=== PATIENT | female | born 1990 | race Two or more races ===

== ENCOUNTER 2025-02-27 04:33 | Emergency (ER) | payer MEDICAID ==
[~2025-02-27] VITALS: Ht 170.2 cm; Wt 79.1 kg
[2025-02-27 05:20] LABS: Urine Bacteria None Seen /hpf (None Seen)
[2025-02-27 06:27] LABS: Urine Blood 3+ /uL (Negative); Urine Budding Yeast MODERATE /hpf (None Seen); Urine Clarity Turbid (Clear); Urine Color Light-Brown (Yellow); Urine Mucus FEW (None Seen); Urine Protein, UAD 1+ (Negative); Urine Specific Gravity 1.017 (1.001-1.035); Urine Squamous Epithelial Cell FEW /hpf (<5); Urine Urobilinogen Normal (Negative); Urine WBC 322 /HPF (0-5); Urine pH 5.5 (5.0-9.0)
[2025-02-27] MEDS ORDERED: BACDST PO (06:45)
--- NOTE | 2025-02-27 06:47 | ED.PDOC ---
General HPI Comments This is a 34-year-old female that comes in with dysuria for approximately 2 days some lower abdominal pain frequency urgency and hematuria. She also has some low back pain. No nausea no vomiting able to tolerate liquids. States he has not had a urinary for awhile, she is sexually active.. Chief Complaint: Urinary Time Seen by MD: 06:39 Reviewed notes: Nurses Notes, Medications, Allergies Allergies: Coded Allergies: NO KNOWN ALLERGIES (Unverified , 02/27/25) Home Meds Active Scripts Sulfamethoxazole W/Trimethopri (Bactrim Ds Tablet) 1 Tab Tb, 1 TAB PO BID for 7 Days, #14 TAB Prov:DORY MONSALVE [facility] 02/27/25 Information Source: Patient Mode of Arrival: Ambulatory Past Medical History Surgical History (Other): Cosmetic surgery Social History Smoker: Non-Smoker Alcohol: Denies ETOH Use Drugs: Denies Drug Use Lives In: Home Gastrointestinal: reports: abdominal pain Genitourinary: reports: burning, dysuria, flank pain, frequency, hematuria, pain, urgency Physical Exam General Appearance: No Apparent Distress HEENT: Normal ENT Inspection, Pharynx Normal, TMs Normal Neck: Non-Tender, Normal Inspection, Supple Respiratory: Lungs Clear, No Accessory Muscle Use, No Respiratory Distress, Normal Breath Sounds Cardiovascular: Regular Rate/Rhythm Breast Exam: Deferred Gastrointestinal: Normal Bowel Sounds, Suprapubic, Tenderness Genitalia: Deferred Pelvic: Deferred Rectal: Deferred Extremities: Normal inspection, Normal range of motion Neurologic: Alert, No Motor Deficits, Normal Affect, Normal Mood Cerebellar Function: NOT DONE Reflexes: NOT DONE Skin: Dry, Normal Color, Warm Lymphatic: NOT DONE Was a procedure done? Was a procedure done?: No Differential Diagnosis Kidney stone (Female): Pyelonephritis, Urolithiasis X-Ray, Labs, Meds, VS Vital Signs Date Time Temp Pulse Resp B/P (MAP) Pulse Ox O2 Delivery O2 Flow Rate FiO2 02/27/25 05:10 98.8 72 18 111/68 (82) 98 98.8 Lab Test 02/27/25 05:19 Range/Units Urine Color Light-brown Yellow Urine Clarity Turbid H Clear Urine pH 5.5 5.0-9.0 Urine Specific [place] 1.017 1.001-1.035 Urine Protein 1+ H Negative Urine Ketones Negative Negative Urine Blood 3+ H Negative /uL Urine Nitrite Negative Negative Urine Bilirubin Negative Negative Urine Urobilinogen Normal Negative mg/dL Urine Leukocyte Esterase 3+ Negative /uL Urine RBC 1405 0 - 4 /hpf Urine Microscopic WBC 322 H 0-5 /HPF Urine Squamous Epithelial Cells Few <5 /hpf Urine Bacteria None seen None Seen /hpf Urine Mucus Few None Seen Urine Yeast (Budding) Moderate None Seen /hpf Urine Glucose Normal Normal mg/dL X-Ray, Labs, Meds, VS Comment Patient seen and examined by me. She does have a urinary tract infection noted on her labs. With symptoms. I will start her on some antibiotics. Instructed to drink lots of liquids make sure she uses the bathroom when she feels need in make sure she voids before and after any sexual relations.. Time of 1ST Reevaluation: 06:43 Reevaluation 1ST: Unchanged Patient Education/Counseling: Diagnosis, Treatment, Prognosis, Need For Follow Up Family Education/Counseling: No Family Present Departure 1 Departure Time of Disposition: 06:44 Impression: Primary Impression: UTI (urinary tract infection) Disposition: 01 HOME / SELF CARE / HOMELESS Condition: Good Additional Instructions: Finish all the antibiotics as directed even though you feel better if you do not take all the meds he infection will come back Drink a lot of liquids Ensure you use the bathroom when you feel the need Make sure you use the bathroom before and after any sexual relations Follow up with your regular doctor in the next 2 3 days e-Prescriptions Sulfamethoxazole W/Trimethopri (Bactrim Ds Tablet) 1 Tab Tb 1 TAB PO BID for 7 Days, #14 TAB Prov: DORY MONSALVE 02/27/25 Discharged With: Self Critical Care Note Critical Care Time?: No Stability Stability form required: Yes DORY MONSALVE Feb 27, 2025 06:47
[2025-02-27 06:54] VITALS: BP 106/78; PULSE 72; RESP 19; TEMP 98.1; O2SAT 100
== END 2025-02-27 07:00 | disposition home or self-care (01) ==
LOC: ER 04:33
DX: N39.0 Urinary tract infection, site not specified (principal); Z79.899 Other long term (current) drug therapy
CPT/HCPCS: 81001

== ENCOUNTER 2025-05-25 15:45 | Emergency (ER) | payer MEDICAID ==
[~2025-05-25 15:45] MED LIST: BACDST PO
--- NOTE | 2025-05-25 16:33 | ED.PDOC ---
History of Present Illness HPI Comments 34-year-old female who presents with a chief complaint of UTI symptoms x2 days. Patient states she is having bloating, nausea, urinary burning frequency, symptoms that resemble her typical UTI. Patient states that this is the 3rd UTI that she has had this year and has been on 2 previous antibiotic regimens. Time Seen by MD: 16:08 Reviewed Notes: Nurses Notes, Medications, Allergies Allergies: Coded Allergies: NO KNOWN ALLERGIES (Unverified , 02/27/25) Home Meds Active Scripts Ibuprofen Micronized (Ibuprofen) 600 Mg Tab, 600 MG PO Q6HP PRN, #30 TAB Prn fever or pain. Take with food. Prov:HEAVEN MCCOY MD 05/25/25 Phenazopyridine HCl (Phenazopyridine Hydrochol) 200 Mg Tab, 200 MG PO TID PRN, #9 TAB Prn urinary pain. Prov:HEAVEN MCCOY MD 05/25/25 Cephalexin Monohydrate (Cephalexin) 500 Mg Cap, 1 CAP PO QID for 10 Days, #40 CAP Prov:HEAVEN MCCOY MD 05/25/25 Sulfamethoxazole W/Trimethopri (Bactrim Ds Tablet) 1 Tab Tb, 1 TAB PO BID for 7 Days, #14 TAB Prov:DORY MONSALVE [facility] 02/27/25 Information Source: Patient Mode of Arrival: Ambulatory Severity: Moderate Timing: Days Duration: Since onset Prehospital treatment: None Past Medical History PAST MEDICAL HISTORY: Denies Surgical History: Denies all surgeries TRAFFIC CONTROL SPECIALIST History: No Pertinent TRAFFIC CONTROL SPECIALIST History Family History Family History: Reviewed,noncontributory to illness Social History Smoker: Non-Smoker Alcohol: Denies ETOH Use Drugs: Denies Drug Use Lives In: Home Constitutional: denies: chills, diaphoresis, fatigue, fever, malaise, sweats, weakness, others EENTM: denies: blurred vision, double vision, ear bleeding, ear discharge, ear drainage, ear pain, ear ringing, eye pain, eye redness, hearing loss, mouth pain, mouth swelling, nasal discharge, nose bleeding, nose congestion, nose pain, photophobia, tearing, throat pain, throat swelling, voice changes, others Respiratory: denies: cough, hemoptysis, orthopnea, SOB at rest, shortness of breath, SOB with excertion, stridor, wheezing, others Cardiovascular: denies: chest pain, dizzy spells, diaphoresis, Dyspnea on exertion, edema, irregular heart beat, left arm pain, lightheadedness, pa lpitations, PND, syncope, others Gastrointestinal: denies: abdomen distended, abdominal pain, blood streaked bowels, constipated, diarrhea, dysphagia, difficulty swallowing, hematemesis, melena, nausea, poor appetite, poor fluid intake, rectal bleeding, rectal pain, vomiting, others Genitourinary: denies: abnormal vagina bleeding, burning, dyspareunia, dysuria, flank pain, frequency, hematuria, incontinence, pain, , vagina discharge, urgency, others Neurological: denies: dizziness, fainting, headache, left sided numbness, left sided weakness, numbness, paresthesia, pre-existing deficit, right sided numbness, right sided weakness, seizure, speech problems, tingling, tremors, weakness, others Musculoskeletal: denies: back pain, gout, joint pain, joint swelling, muscle pain, muscle stiffness, neck pain, others Integumetry: denies: bruises, change in color, change in hair/nails, dryness, laceration, lesions, lumps, rash, wounds, others Allergic/Immunocompromised: denies: Difficulty Healing, Frequent Infections, Hives, Itching, others Hematologic/Lymphatic: denies: anemia, blood clots, easy bleeding, easy bruising, swollen glands, others Endocrine: denies: excessive hunger, excessive sweating, excessive thirst, excessive urination, flushing, intolerance to cold, intolerance to heat, unexplained weight gain, unexplained weight loss, others Psychiatric: denies: anxiety, bipolar disorder, depression, hopeless, panic disorder, schizophrenia, sleepless, suicidal, others All Other Systems: Reviewed and Negative ( PER HPI) Physical Exam General Appearance: No Apparent Distress HEENT: Other (Pupils and face symmetric. Moist mucous membranes.) Neck: Full Range of Motion, Normal Inspection Respiratory: Lungs Clear, No Accessory Muscle Use, No Respiratory Distress, Normal Breath Sounds Cardiovascular: No Edema, No JVD, Regular Rate/Rhythm Breast Exam: Deferred Gastrointestinal: Soft, Suprapubic, Tenderness Genitalia: Deferred Pelvic: Deferred Rectal: Deferred Extremities: Normal inspection, Normal range of motion, Non-tender, No pedal edema Neurologic: Alert (Oriented x4), Normal Affect, Normal Mood Cerebellar Function: NOT DONE Reflexes: NOT DONE Skin: Dry, Normal Color, Warm Lymphatic: NOT DONE Was a procedure done? Was a procedure done?: No Differential Dx Considerations may include: Cystitis, , urethritis, pyelonephritis, among others X-Ray, Labs, Meds, VS Lab Test 05/25/25 18:02 Range/Units Urine Color Colorless Yellow Urine Clarity Turbid H Clear Urine pH 5.0 5.0-9.0 Urine Specific [place] 1.010 1.001-1.035 Urine Protein Negative Negative Urine Ketones Negative Negative Urine Blood Trace H Negative /uL Urine Nitrite Negative Negative Urine Bilirubin Negative Negative Urine Urobilinogen Normal Negative mg/dL Urine Leukocyte Esterase 3+ Negative /uL Urine RBC 5 0 - 4 /hpf Urine Microscopic WBC 27 H 0-5 /HPF Urine Squamous Epithelial Cells Few <5 /hpf Urine Bacteria Few H None Seen /hpf Urine Glucose Normal Normal mg/dL Urine Test Negative Negative X-Ray, Labs, Meds, VS Comment 34-year-old female with history of prior UTIs brought in by family complaining of urinary burning, frequency, suprapubic abdominal cramping and bloating consistent with prior UTIs. Vitals unremarkable Exam remarkable for mild suprapubic tenderness to palpation UA abnormal consistent with UTI, urine negative No acute treatment indicated in the ED On re-evaluation, patient appears comfortable with unremarkable vitals. Patient appears stable for discharge with close outpatient follow-up with her primary physician. Rx Keflex, Pyridium ibuprofen Time of 1ST Reevaluation: 16:38 Reevaluation 1ST: Unchanged Patient Education/Counseling: Diagnosis, Treatment, Need For Follow Up Family Education/Counseling: No Family Present SEPSIS Sepsis Screen Physician Orders Electrocardigram (05/25/25 16:52) Departure 1 Departure Time of Disposition: 17:02 Impression: Primary Impression: UTI (urinary tract infection) Qualified Codes: N30.00 - Acute cystitis without hematuria Disposition: 01 HOME / SELF CARE / HOMELESS Condition: Stable Additional Instructions: Urine test was abnormal consistent with a urinary tract infection. I have prescribed medication for your symptoms as well as antibiotics. Follow-up with your primary doctor in 1-2 days. e-Prescriptions Ibuprofen Micronized (Ibuprofen) 600 Mg Tab 600 MG PO Q6HP PRN, #30 TAB Prn fever or pain. Take with food. Prov: HEAVEN MCCOY MD 05/25/25 Phenazopyridine HCl (Phenazopyridine Hydrochol) 200 Mg Tab 200 MG PO TID PRN, #9 TAB Prn urinary pain. Prov: HEAVEN MCCOY MD 05/25/25 Cephalexin Monohydrate (Cephalexin) 500 Mg Cap 1 CAP PO QID for 10 Days, #40 CAP Prov: HEAVEN MCCOY MD 05/25/25 Discharged With: Relative Critical Care Note Critical Care Time?: No Stability Stability form required: No Heart Score Heart Score: Heart Score Response (Comments) Value History N/A 0 EKG N/A 0 Age N/A 0 Risk Factors N/A 0 Troponin N/A 0 Total 0 I personally scribed for LEXY BENEDICT MD ([email or web address]) on 05/25/25 at 16:33. Electronically submitted by Marko Mckenna ([email or web address]). LEXY BENEDICT MD May 25, 2025 16:33 HEAVEN MCCOY MD May 25, 2025 17:04
[2025-05-25] MEDS ORDERED: PHEN-1045 PO (17:03)
[2025-05-25] MEDS ORDERED: CEPH500C PO (17:03)
[2025-05-25] MEDS ORDERED: IBUP1TAB5 PO (17:03)
[2025-05-25 18:23] LABS: Urine Protein, UAD Negative (Negative)
== END 2025-05-25 20:33 | disposition left against medical advice (07) ==
LOC: ER 15:52
DX: N39.0 Urinary tract infection, site not specified (principal); Z87.440 Personal history of urinary (tract) infections; Z79.899 Other long term (current) drug therapy
CPT/HCPCS: 81001; 81025

== ENCOUNTER 2025-06-12 06:18 | Emergency (ER) | payer MEDICAID ==
[~2025-06-12] VITALS: Ht 170.2 cm; Wt 77.6 kg
[~2025-06-12 06:18] MED LIST changes: +CEPH500C PO; +IBUP1TAB5 PO; +PHEN-1045 PO
--- NOTE | 2025-06-12 06:29 | ED.PDOC ---
HPI Comments 34 y/o F, with PMHx of anxiety presents to the ED for CC of chest pain. Patient states, she has been experiencing intermittent substernal chest pain with associated left arm pain x3 months. Patient complains of current 7/10 pain. Patient denies shortness of breath, headache, nausea, vomiting, or palpitations. No other associated symptoms, modifiers, recent injuries or sick contacts present at this time. Chief Complaint: Chest Pain Time Seen by MD: 06:30 Reviewed Notes: Nurses Notes, Medications, Allergies Allergies: Coded Allergies: NO KNOWN ALLERGIES (Unverified , 02/27/25) Home Meds Active Scripts Ibuprofen Micronized (Ibuprofen) 600 Mg Tab, 600 MG PO Q6HP PRN, #30 TAB Prn fever or pain. Take with food. Prov:HEAVEN MCCOY MD 05/25/25 Phenazopyridine HCl (Phenazopyridine Hydrochol) 200 Mg Tab, 200 MG PO TID PRN, #9 TAB Prn urinary pain. Prov:HEAVEN MCCOY MD 05/25/25 Cephalexin Monohydrate (Cephalexin) 500 Mg Cap, 1 CAP PO QID for 10 Days, #40 CAP Prov:HEAVEN MCCOY MD 05/25/25 Sulfamethoxazole W/Trimethopri (Bactrim Ds Tablet) 1 Tab Tb, 1 TAB PO BID for 7 Days, #14 TAB Prov:DORY MONSALVE 02/27/25 Information Source: Patient Mode of Arrival: Ambulatory Severity: Moderate Timing: Months Duration: Intermittent Prehospital treatment: None Location: Substernal Radiation: Arm (L) Onset: At Rest Cardiac Risk Factors: None PE Risk Factors: None History of: None Modifying Factors: Nothing Associated Signs and Symptoms: None Past Medical History PAST MEDICAL HISTORY: Anxiety Surgical History: Denies all surgeries CHIMNEY SUPERVISOR BRICK History: No Pertinent CHIMNEY SUPERVISOR BRICK History Family History Family History: Reviewed,noncontributory to illness Social History Smoker: Non-Smoker Alcohol: Denies ETOH Use Drugs: Denies Drug Use Lives In: Home Constitutional: denies: chills, diaphoresis, fatigue, fever, malaise, sweats, weakness, others EENTM: denies: blurred vision, double vision, ear bleeding, ear discharge, ear drainage, ear pain, ear ringing, eye pain, eye redness, hearing loss, mouth pain, mouth swelling, nasal discharge, nose bleeding, nose congestion, nose pain, photophobia, tearing, throat pain, throat swelling, voice changes, others Respiratory: denies: cough, hemoptysis, orthopnea, SOB at rest, shortness of breath, SOB with excertion, stridor, wheezing, others Cardiovascular: reports: chest pain, left arm pain; denies: dizzy spells, diaphoresis, Dyspnea on exertion, edema, irregular heart beat, lightheadedness, palpitations, PND, syncope, others Gastrointestinal: denies: abdomen distended, abdominal pain, blood streaked bowels, constipated, diarrhea, dysphagia, difficulty swallowing, hematemesis, melena, nausea, poor appetite, poor fluid intake, rectal bleeding, rectal pain, vomiting, others Genitourinary: denies: abnormal vagina bleeding, burning, dyspareunia, dysuria, flank pain, frequency, hematuria, incontinence, pain, , vagina discharge, urgency, others Neurological: denies: dizziness, fainting, headache, left sided numbness, left sided weakness, numbness, paresthesia, pre-existing deficit, right sided numbness, right sided weakness, seizure, speech problems, tingling, tremors, weakness, others Musculoskeletal: denies: back pain, gout, joint pain, joint swelling, muscle pain, muscle stiffness, neck pain, others Integumetry: denies: bruises, change in color, change in hair/nails, dryness, laceration, lesions, lumps, rash, wounds, others Allergic/Immunocompromised: denies: Difficulty Healing, Frequent Infections, Hives, Itching, others Hematologic/Lymphatic: denies: anemia, blood clots, easy bleeding, easy bruising, swollen glands, others Endocrine: denies: excessive hunger, excessive sweating, excessive thirst, excessive urination, flushing, intolerance to cold, intolerance to heat, unexplained weight gain, unexplained weight loss, others Psychiatric: reports: anxiety; denies: bipolar disorder, depression, hopeless, panic disorder, schizophrenia, sleepless, suicidal, others All Other Systems: Reviewed and Negative Physical Exam General Appearance: Moderate Distress HEENT: Normal ENT Inspection, Pharynx Normal, TMs Normal Neck: Full Range of Motion, Non-Tender, Normal, Normal Inspection Respiratory: Chest Non-Tender, Lungs Clear, No Accessory Muscle Use, No Respiratory Distress, Normal Breath Sounds Cardiovascular: No Edema, No JVD, No Murmur, No Gallop, Normal Peripheral Pulses, Regular Rate/Rhythm Breast Exam: Deferred Gastrointestinal: No Organomegaly, Non Tender, No Pulsatile Mass, Normal Bowel Sounds, Soft Genitalia: Deferred Pelvic: Deferred Rectal: Deferred Extremities: No calf tenderness, Normal capillary refill, Normal inspection, Normal range of motion, Non-tender, No pedal edema Musculoskeletal : Apperance: Normal Neurologic: Alert, operator vacuum II-XII nml as Tested, No Motor Deficits, Normal Affect, Normal Mood, No Sensory Deficits Cerebellar Function: Normal Reflexes: Normal Skin: Dry, Normal Color, Warm Peripheral Pulses: 3+ Radial (R), 3+ Radial (L) Lymphatic: No Adenopathy EKG EKG : Pulse Rate (adult): 85 [place]: Normal Cardiac Rhythm: NSR Block: None Hypertrophy: None ST: Normal Was a procedure done? Was a procedure done?: No CP Differential Dx Differential Diagnosis: A-fib, A-Flutter, Angina, Anxiety / Panic Attack, Atrial Dysrhythmia, Electrolyte Disorder Differential Diagnosis: Angina, Chest Wall Pain, Costochondritis X-Ray, Labs, Meds, VS Vital Signs Date Time Temp Pulse Resp B/P (MAP) Pulse Ox O2 Delivery O2 Flow Rate FiO2 06/12/25 06:42 85 06/12/25 06:23 85 06/12/25 06:20 98.3 71 20 115/79 (91) 100 98.3 Lab Test 06/12/25 06:40 Range/Units White Blood Count Pending Red Blood Count Pending Hemoglobin Pending Hematocrit Pending Mean Corpuscular Volume Pending Mean Corpuscular Hemoglobin Pending Mean Corpuscular Hemoglobin Concent Pending Red Cell Distribution Width Pending Platelet Count Pending Mean Platelet Volume Pending Neutrophils (%) (Auto) Pending Lymphocytes (%) (Auto) Pending Monocytes (%) (Auto) Pending Basophils (%) (Auto) Pending Neutrophils # (Auto) Pending Lymphocytes # (Auto) Pending Monocytes # (Auto) Pending Sodium Level Pending Potassium Level Pending Chloride Level Pending Carbon Dioxide Level Pending Anion Gap Pending Blood Urea Nitrogen Pending Creatinine Pending Glomerular Filtration Rate Calc Pending BUN/Creatinine Ratio Pending Serum Glucose Pending Calcium Level Pending Troponin I High Sensitivity Pending Patient alert. Anxious. Complaining of chest pain. Vitals stable. EKG reviewed does not show any acute changes. Was given Ativan. No leg swelling. No shortness a breath. Explained to the patient that she is not having a heart attack. Was told to follow up with her primary care physician. Was told to come back if there is any problem. Time of 1ST Reevaluation: 07:00 Reevaluation 1ST: Unchanged Patient Education/Counseling: Diagnosis, Treatment Family Education/Counseling: No Family Present SEPSIS Sepsis Screen Physician Orders Complete Blood Count (06/12/25 06:31) Urinalysis (06/12/25 06:31) Troponin-I Hs (06/12/25 06:31) Troponin-I Hs (06/12/25 07:31) Troponin-I Hs (06/12/25 09:31) Basic Metabolic Panel (06/12/25 06:31) Electrocardigram (06/12/25 06:42) Electrocardigram (06/12/25 07:42) Electrocardigram (06/12/25 09:42) Vital Signs Date Time Temp Pulse Resp B/P (MAP) Pulse Ox O2 Delivery O2 Flow Rate FiO2 06/12/25 06:42 85 06/12/25 06:23 85 06/12/25 06:20 98.3 71 20 115/79 (91) 100 98.3 Laboratory Tests Test 06/12/25 06:40 White Blood Count Pending Departure 1 Departure Time of Disposition: 07:00 Impression: Primary Impression: Musculoskeletal chest pain Additional Impression: Anxiety Disposition: 01 HOME / SELF CARE / HOMELESS Condition: Good Discharged With: Self Critical Care Note Critical Care Time?: No Stability Stability form required: No Heart Score Heart Score: Heart Score Response (Comments) Value History Slightly Suspicious 0 EKG Normal 0 Age <45 0 Risk Factors No known risk factors 0 Troponin Normal limit 0 Total 0 I personally scribed for VARUN SNYDER MD ([email or web address]) on 06/12/25 at 06:29. Electronically submitted by Guillermina Paredes ([email or web address]). I personally scribed for VARUN SNYDER MD ([email or web address]) on 06/12/25 at 06:40. Electronically submitted by Guillermina Paredes ([email or web address]). I personally scribed for VARUN SNYDER MD ([email or web address]) on 06/12/25 at 06:42. Electronically submitted by Guillermina Paredes ([email or web address]). I personally scribed for VARUN SNYDER MD ([email or web address]) on 06/12/25 at 06:42. Electronically submitted by Guillermina Paredes ([email or web address]). VARUN SNYDER MD Jun 12, 2025 06:29
[2025-06-12 07:08] LABS: Chloride 106 mmol/L (98-107); Sodium 139 mmol/L (136-145)
[2025-06-12 07:09] LABS: Anion Gap 10 (5-15); Carbon Dioxide 23 mmol/L (20-31)
[2025-06-12 07:10] LABS: Calcium 9.8 mg/dL (8.7-10.4)
[2025-06-12 07:14] LABS: BUN/Creatinine Ratio 7.7 (10.0-20.0); Glucose 82 mg/dL (74-106)
[2025-06-12 07:17] LABS: Hematocrit 35.5 % (36.0-46.0); Hemoglobin 12.0 g/dL (12.2-16.2); Mean Corpuscular Hemoglobin 29.9 pg (28.0-32.0); Mean Corpuscular Volume 88.5 fL (80.0-100.0); Nucleated Red Blood Cells % 0.2 %
[2025-06-12 07:21] LABS: Blood Urea Nitrogen 6 mg/dL (9-23); Potassium 3.2 mmol/L (3.5-5.1)
--- NOTE | 2025-06-12 07:22 | ECG ---
[facility] Test Date: 2025-06-12 Test Time: 07:21:16 Pat Name: DAVID PEREZ Department: ED Room: Gender: F Provider Network Analyst: TRAY : 1990 Requested By: VARUN SNYDER Order Number: [id number] Reading MD: Murali Steen Measurements Intervals [place] Rate: 67 P: 65 VT: 169 QRS: 64 QRSD: 87 T: 53 QT: 399 QTc: 422 Interpretive Statements Sinus rhythm Electronically Signed On 06-15-2025 17:48:03 PDT by Murali Steen Please click the below link to view image of tracing.
[2025-06-12] MEDS: LORazepam 0.5 MG TAB PO ONE (07:35)
[2025-06-12 08:13] VITALS: BP 118/77; PULSE 68; RESP 16; TEMP 98.1; O2SAT 100
[2025-06-12 08:33] LABS: Urine Protein, UAD Negative (Negative)
[2025-06-12] MEDS: POTASSIUM EFFERVESENT TAB 25 MEQ PO ONE (09:33)
--- NOTE | 2025-06-16 06:26 | ECG ---
[facility] Test Date: 2025-06-12 Test Time: 06:23:06 Pat Name: DAVID PEREZ Department: [facility] ED Patient ID: [facility]-[id number] Room: Gender: F Hair Sample Matcher: NEVILLE : 1990 Requested By: VARUN SNYDER Order Number: [id number] Reading MD: Murali Steen Measurements Intervals [place] Rate: 85 P: 77 SD: 176 QRS: 62 QRSD: 86 T: 57 QT: 382 QTc: 455 Interpretive Statements Sinus rhythm Electronically Signed On 06-16-2025 11:16:15 PDT by Murali Steen Please click the below link to view image of tracing.
== END 2025-06-12 09:34 | disposition home or self-care (01) ==
LOC: ER 06:18
DX: R07.2 Precordial pain (principal); F41.9 Anxiety disorder, unspecified; Z79.899 Other long term (current) drug therapy
CPT/HCPCS: 36415; 80048; 81001; 84484; 85025; 93005